=== PATIENT | female | born 1960 | race Caucasian/White ===

== ENCOUNTER 2018-01-11 15:34 | Outpatient (CLI) | payer OTHER, BC | END 2018-01-11 15:35 | disposition critical access hospital (66) | LOC: EMS 15:34 | PROVIDERS: ATTEND Surgery | DX: R07.9 Chest pain, unspecified (principal); V49.50XA Passenger injured in collision with unspecified motor vehicles in traffic accident, initial encounter; Y92.413 State road as the place of occurrence of the external cause | CPT/HCPCS: A0425; A0429 ==

== ENCOUNTER 2018-01-11 15:56 | Emergency (ER) | payer OTHER, BC ==
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
[2018-01-11] MEDS ORDERED: IOPAMIDOL-300 100 ML VIAL ONE (16:45)
[2018-01-11] MEDS ORDERED: IOPAMIDOL-300 100 ML VIAL IVP ONE (17:23)
[2018-01-11] MEDS ORDERED: KETOROLAC 60 MG/2 ML VIAL IVP STA (17:25)
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
[2018-01-11 18:10] VITALS: BP 150/65
--- NOTE | 2018-01-11 22:20 | ED Physician Documentation ---
ED Addendum - Addendum Addendum: 01/11/18 22:18 Received call from pharmacy and spoke to the pharmacist where patient is getting rx filled. Pharmacist says, although our chart says allergy is sulfa and oxycodone, patient is saying she is allergic to hydrocodone. Prescription changed to Ultram 50mg 1-2 tab PO Q6 hours PRN pain #15 (fifteen)
== END 2018-01-11 18:09 | disposition home or self-care (01) ==
LOC: ED 15:56
DX: S20.212A Contusion of left front wall of thorax, initial encounter (principal); V43.62XA Car passenger injured in collision with other type car in traffic accident, initial encounter; Y92.488 Other paved roadways as the place of occurrence of the external cause
CPT/HCPCS: 71260; 74177; 96374; 99283; 99284; Q9967